=== PATIENT | female | born 1950 | race African-American/Black ===

== ENCOUNTER 2017-02-07 14:46 | Emergency (ER) | payer MEDICAID, OTHER ==
[~2017-02-07] VITALS: Ht 154.9 cm; Wt 80.0 kg
[~2017-02-07 14:46] MED LIST: ASPI81TA82 PO; CITA20TA4 PO; HYDR12.56 PO; LOSA25TA31 PO; METO25 PO; NIFE20CA PO; ZOCO40TA PO
[2017-02-07 15:03] VITALS: BP 184/93; PULSE 60; RESP 18; TEMP 98.3; O2SAT 97
[2017-02-07] MEDS ORDERED: SODIUM CHLORIDE 0.9% FLUSH 10 ML FLUSH IVF PRN (15:15)
[2017-02-07] MEDS ORDERED: NITROGLYCERIN 0.4 MG SL 25 TABS/BTL SL ONE (15:15)
[2017-02-07] MEDS ORDERED: HYDROmorphone HCL PF 1 MG/ML VIAL IV PUSH ONE (15:15)
[2017-02-07] MEDS ORDERED: SODIUM CHLORID 0.9% 500 ML INJ 500 ML IV ONE (15:15)
--- NOTE | 2017-02-07 15:21 | PD ---
HPI Chief Complaint: Chest Pain Time Seen by Provider: 14:58 Travel History International Travel<30 days: No Contact w/Intl Traveler<30days: No Traveled to known affect area: No History of Present Illness HPI The patient is a 66-year-old [place] female who presents to the emergency department for right sided neck pain. The patient states she developed right sided neck pain last night that radiates up the posterior aspect of the right neck, around to the right jaw, and then down to the anterior aspect of the right neck. The pain is worse with flexion, extension, and rotation of the neck. The patient denies any known trauma to the cervical area. The patient states the pain then developed around the anterior aspect the left chest, radiating from the neck, and EMS brought her to the emergency department for chest pain. The patient does have a history of CAD with [place] [facility] in 2008. 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 The patient denies any shortness of breath , nausea, vomiting, or abdominal pain. The patient denies any focal deficits. PFSH Past Medical History Cardiac Catheterization: Yes (2008) Cardiovascular Problems: Yes High Cholesterol: Yes Diminished Hearing: No Hypertension: Yes ?: Not Menopausal: Yes : 2 Para: 1 : 1 Past Surgical History Section: Yes Coronary Stent: Yes (2008) Social History Alcohol Use: No Tobacco Use: No Allergies-Medications (Allergen,Severity, Reaction): Coded Allergies: Morphine (Verified Adverse Reaction, Severe, VOMITING, 08/23/16) Reported Meds & Prescriptions Reported Meds & Active Scripts Active Citalopram Hydrobromide 20 Mg Tab 20 Mg PO DAILY Cozaar (Losartan Potassium) 25 Mg Tab 25 Mg PO DAILY Reported Nifedipine 20 Mg Cap 40 Mg PO DAILY Zocor 40 mg (Simvastatin) 40 Mg Tab Unknown Dose PO HS Hydrochlorothiazide 12.5 Mg Tab Tab PO Aspir-81 (Aspirin) 81 Mg Tab 81 Mg PO DAILY Metoprolol Tartrate 25 mg (Metoprolol Tartrate) 25 Mg Tab 25 Mg PO DAILY Review of Systems Except as stated in HPI: all other systems reviewed are Neg General / Constitutional: No: Fever HENT: Positive: Neck Pain, No: Headaches, Lightheadedness Cardiovascular: Positive: Chest Pain or Discomfort Respiratory: No: Shortness of Breath Gastrointestinal: No: Nausea, Vomiting, Abdominal Pain Musculoskeletal: No: Weakness Neurologic: No: Dizziness, Focal Abnormalities, Paresthesia, Sensory Disturbance Physical Exam Narrative GENERAL: Awake, alert, 66-year-old female who appears her stated age and is in no acute respiratory distress. SKIN: Focused skin assessment warm/dry. HEAD: Atraumatic. Normocephalic. EYES: Pupils equal and round. Pupils are 3 mm bilateral and reactive. ENT: No nasal bleeding or discharge. Mucous membranes pink and moist. NECK: Trachea midline. No JVD. Tenderness over the right paravertebral muscle, limited ability to rotate to left and right secondary to pain. CARDIOVASCULAR: Regular rate and rhythm. No murmur appreciated. RESPIRATORY: No accessory muscle use. Clear to auscultation. Breath sounds equal bilaterally. GASTROINTESTINAL: Abdomen soft, non-tender, nondistended. No rebound tenderness. MUSCULOSKELETAL: No obvious deformities. No clubbing. No cyanosis. No edema. NEUROLOGICAL: Awake and alert. No obvious cranial nerve deficits. Motor grossly within normal limits. Normal speech. Nonfocal. PSYCHIATRIC: Appropriate mood and affect; insight and judgment normal. Data Data Last Documented VS Vital Signs Date Time Temp Pulse Resp B/P Pulse Ox O2 Delivery O2 Flow Rate FiO2 02/07/17 15:34 65 18 153/95 98 Room Air 02/07/17 15:03 98.3 Orders Electrocardiogram (02/07/17 ) Ckmb (Isoenzyme) Profile (02/07/17 15:12) Complete Blood Count With Diff (02/07/17 15:12) Comprehensive Metabolic Panel (02/07/17 15:12) Magnesium (Mg) (02/07/17 15:12) Prothrombin Time / Inr (Pt) (02/07/17 15:12) Act Partial Throm Time (Ptt) (02/07/17 15:12) Troponin I (02/07/17 15:12) Chest, Single Ap (02/07/17 15:12) Ecg Monitoring (02/07/17 15:12) Bilateral Bp Monitoring (02/07/17 15:12) Iv Access Insert/Monitor (02/07/17 15:12) Oximetry (02/07/17 15:12) Oxygen Administration (02/07/17 15:12) Sodium Chloride 0.9% Flush (Ns Flush) (02/07/17 15:15) Nitroglycerin Sl (Nitrostat Sl) (02/07/17 15:15) Sodium Chlorid 0.9% 500 Ml Inj (Ns 500 M (02/07/17 15:15) Cta Neck W Iv Contrast W 3d (02/07/17 ) Hydromorphone Pf Inj (Dilaudid Pf Inj) (02/07/17 15:15) CKMB (02/07/17 15:20) CKMB% (02/07/17 15:20) Ondansetron Inj (Zofran Inj) (02/07/17 16:30) Iohexol 350 Inj (Omnipaque 350 Inj) (02/07/17 16:51) Ketorolac Inj (Toradol Inj) (02/07/17 17:30) Orphenadrine Inj (Norflex Inj) (02/07/17 17:30) Apply Cervical Collar (02/07/17 17:28) Morphine Inj (Morphine Inj) (02/07/17 17:30) Labs Laboratory Tests Test 02/07/17 15:20 White Blood Count 10.1 TH/MM3 Red Blood Count 5.35 MIL/MM3 Hemoglobin 12.0 GM/DL Hematocrit 36.9 % Mean Corpuscular Volume 68.9 FL Mean Corpuscular Hemoglobin 22.4 PG Mean Corpuscular Hemoglobin 32.5 % Concent Red Cell Distribution Width 14.4 % Platelet Count 334 TH/MM3 Mean Platelet Volume 8.6 FL Neutrophils (%) (Auto) 67.2 % Lymphocytes (%) (Auto) 23.0 % Monocytes (%) (Auto) 7.8 % Eosinophils (%) (Auto) 1.1 % Basophils (%) (Auto) 0.9 % Neutrophils # (Auto) 6.8 TH/MM3 Lymphocytes # (Auto) 2.3 TH/MM3 Monocytes # (Auto) 0.8 TH/MM3 Eosinophils # (Auto) 0.1 TH/MM3 Basophils # (Auto) 0.1 TH/MM3 CBC Comment AUTO DIFF Differential Comment AUTO DIFF CONFIRMED Platelet Estimate NORMAL Platelet Morphology Comment NORMAL Ovalocytes 1+ Prothrombin Time 11.1 SEC Prothromb Time International 1.0 RATIO Ratio Activated Partial 26.4 SEC Thromboplast Time Sodium Level 139 MEQ/L Potassium Level 3.6 MEQ/L Chloride Level 102 MEQ/L Carbon Dioxide Level 30.3 MEQ/L Anion Gap 7 MEQ/L Blood Urea Nitrogen 12 MG/DL Creatinine 1.02 MG/DL Estimat Glomerular Filtration 65 ML/MIN Rate Random Glucose 103 MG/DL Calcium Level 9.1 MG/DL Magnesium Level 1.7 MG/DL Total Bilirubin 0.5 MG/DL Aspartate Amino Transf 25 U/L (AST/SGOT) Alanine Aminotransferase 22 U/L (ALT/SGPT) Alkaline Phosphatase 52 U/L Total Creatine Kinase 170 U/L Creatine Kinase MB 1.0 NG/ML Troponin I LESS THAN 0.02 NG/ML Total Protein 7.8 GM/DL Albumin 3.7 GM/DL MDM Medical Decision Making Medical Screen Exam Complete: Yes Emergency Medical Condition: Yes Medical Record Reviewed: Yes Interpretation(s) EKG reveals normal sinus rhythm with a rate of 60. No ischemic changes or ectopy noted. Laboratory Tests Test 02/07/17 15:20 White Blood Count 10.1 TH/MM3 Red Blood Count 5.35 MIL/MM3 Hemoglobin 12.0 GM/DL Hematocrit 36.9 % Mean Corpuscular Volume 68.9 FL Mean Corpuscular Hemoglobin 22.4 PG Mean Corpuscular Hemoglobin 32.5 % Concent Red Cell Distribution Width 14.4 % Platelet Count 334 TH/MM3 Mean Platelet Volume 8.6 FL Neutrophils (%) (Auto) 67.2 % Lymphocytes (%) (Auto) 23.0 % Monocytes (%) (Auto) 7.8 % Eosinophils (%) (Auto) 1.1 % Basophils (%) (Auto) 0.9 % Neutrophils # (Auto) 6.8 TH/MM3 Lymphocytes # (Auto) 2.3 TH/MM3 Monocytes # (Auto) 0.8 TH/MM3 Eosinophils # (Auto) 0.1 TH/MM3 Basophils # (Auto) 0.1 TH/MM3 CBC Comment AUTO DIFF Differential Comment AUTO DIFF CONFIRMED Platelet Estimate NORMAL Platelet Morphology Comment NORMAL Ovalocytes 1+ Prothrombin Time 11.1 SEC Prothromb Time International 1.0 RATIO Ratio Activated Partial 26.4 SEC Thromboplast Time Sodium Level 139 MEQ/L Potassium Level 3.6 MEQ/L Chloride Level 102 MEQ/L Carbon Dioxide Level 30.3 MEQ/L Anion Gap 7 MEQ/L Blood Urea Nitrogen 12 MG/DL Creatinine 1.02 MG/DL Estimat Glomerular Filtration 65 ML/MIN Rate Random Glucose 103 MG/DL Calcium Level 9.1 MG/DL Magnesium Level 1.7 MG/DL Total Bilirubin 0.5 MG/DL Aspartate Amino Transf 25 U/L (AST/SGOT) Alanine Aminotransferase 22 U/L (ALT/SGPT) Alkaline Phosphatase 52 U/L Total Creatine Kinase 170 U/L Creatine Kinase MB 1.0 NG/ML Troponin I LESS THAN 0.02 NG/ML Total Protein 7.8 GM/DL Albumin 3.7 GM/DL CTA reveals tortuous bilateral internal carotid arteries with focal kinking identified bilaterally without evidence for hemodynamically significant stenosis. Mild atherosclerotic plaquing at the bifurcations. Differential Diagnosis Differential diagnosis includes carotid dissection, cervical strain, torticollis , aortic dissection, acute coronary syndrome. Narrative Course IV was established, labs were drawn and sent, and the patient was placed on cardiac telemetry monitoring and continuous pulse oximetry monitoring. CTA was ordered to rule out carotid dissection. The patient was administered Dilaudid, Zofran, and IV fluids. Laboratory evaluation was unremarkable, troponin was negative. CT of the carotids reveals tortuous bilateral internal carotid arteries with focal kinking identified bilaterally without evidence for hemodynamically significant stenosis. Mild atherosclerotic plaquing at the bifurcations, no evidence of dissection. The patient still has mild right sided neck pain, is worse when she turns her head left, with extension and flexion. Patient is afebrile, neck pain is unilateral, I do not suspect meningitis. Patient appears to have soft tissue injury as there is no evidence of dissection. The patient was administered Toradol, morphine, and Norflex. The patient will be discharged home on Motrin and Norflex, is advised to wear soft collar as needed and follow-up with her primary physician. Return if symptoms worsen or progress. I also evaluated the right EAC and right TM, translucent with no evidence of infection or erythema. Diagnosis Primary Impression: Neck pain on right side Patient Instructions: General Instructions Additional Instructions: Medications as they directed. Warm compresses. Soft collar as needed. Return if symptoms worsen or progress. Follow-up with your primary physician. Med/Other Pt SpecificInfo: Prescription(s) given Scripts Orphenadrine ER 12 HR (Orphenadrine CR)100 Mg [id number] Mg PO Q12HR #20 TAB Ref 0 Prov:Thomas Zayas MD 02/07/17 Ibuprofen 400 Mg [id number] Mg PO Q6H PRN (PAIN SCALE 1 TO 10) #20 TAB Ref 0 Prov:Thomas Zayas MD 02/07/17 Disposition: 01 DISCHARGE HOME Condition: Stable Thomas Zayas MD Feb 07, 2017 15:21
[2017-02-07 15:23] VITALS: BP_SYST 152; BP_SYST 153; BP_DIAS 89; BP_DIAS 95; PULSE 63; RESP 18; O2SAT 98
[2017-02-07 15:34] VITALS: BP 153/95; PULSE 65; RESP 18; O2SAT 98
[2017-02-07 15:40] LABS: AUTOMATED NEUTROPHIL # 6.8 TH/MM3 (1.8-7.7); BASOPHIL # 0.1 TH/MM3 (0-0.2); BASOPHIL % 0.9 % (0.0-2.0); EOSINOPHIL # 0.1 TH/MM3 (0-0.4); EOSINOPHIL % 1.1 % (0.0-4.0); HEMATOCRIT 36.9 % (35.0-46.0); HEMO FLAGS AUTO DIFF; LYMPHOCYTE # 2.3 TH/MM3 (1.0-4.8); MEAN CELL VOLUME 68.9 FL (80.0-100.0); MEAN CORPUSCULAR HEMOGLOBIN 22.4 PG (27.0-34.0); MEAN CORPUSCULAR HGB CONC 32.5 % (32.0-36.0); MONO % 7.8 % (0.0-8.0); NEUT % 67.2 % (16.0-70.0); PLATELET COUNT 334 TH/MM3 (150-450); RED BLOOD COUNT 5.35 MIL/MM3 (4.00-5.30); RED CELL DISTRIBUTION WIDTH 14.4 % (11.6-17.2); WHITE BLOOD COUNT 10.1 TH/MM3 (4.0-11.0)
[2017-02-07 15:52] LABS: APTT (PATIENT) 26.4 SEC (24.3-30.1); PROTHROMBIN TIME - PATIENT 11.1 SEC (9.8-11.6)
[2017-02-07 16:04] LABS: ALT (GPT) 22 U/L (10-53); ANION GAP 7 MEQ/L (5-15); AST (GOT) 25 U/L (15-37); BICARBONATE 30.3 MEQ/L (21.0-32.0); BLOOD UREA NITROGEN 12 MG/DL (7-18); CHLORIDE 102 MEQ/L (98-107); GLOMERULAR FILTRATION RATE 65 ML/MIN (>89); MAGNESIUM 1.7 MG/DL (1.5-2.5); SODIUM (NA) 139 MEQ/L (136-145)
[2017-02-07 16:08] LABS: OVALOCYTES 1+ (NORMAL); PLATELET ESTIMATE SMEAR NORMAL (NORMAL); PLATELET MORPHOLOGY NORMAL (NORMAL); SCAN/DIFF AUTO DIFF CONFIRMED
[2017-02-07 16:13] LABS: ALKALINE PHOSPHATASE 52 U/L (45-117); CREATINE KINASE 170 U/L (26-192); POTASSIUM 3.6 MEQ/L (3.5-5.1); TOTAL BILIRUBIN ADULT 0.5 MG/DL (0.2-1.0)
--- NOTE | 2017-02-07 16:15 | RADRPT ---
EXAM DATE/TIME: 02/07/2017 15:44 [facility] COMPARISON: CHEST SINGLE AP, August 23, 2016, 17:42. INDICATIONS : Chest discomfort from anxiety. General weakness. MEDICAL HISTORY : Hypertension. Myocardial infarction. SURGICAL HISTORY : Coronary artery stent. ENCOUNTER: Initial ACUITY: 1 day PAIN SCORE: 1/10 LOCATION: Bilateral chest FINDINGS: Portable AP view of the chest demonstrates a normal-sized cardiac silhouette. No effusion, consolidat ion, or pneumothorax is visualized. The bones and soft tissues demonstrate no acute abnormality. Ther e is a calcified lymph node overlying the left mediastinal region. CONCLUSION: Stable chest x-ray. No acute cardiopulmonary abnormality is identified. Black Chappell MD on February 07, 2017 at 16:12 Board Certified Radiologist. This report was verified electronically.
[2017-02-07] MEDS ORDERED: ONDANSETRON HCL 4 MG/2 ML VIAL IV PUSH ONE (16:30)
[2017-02-07] MEDS ORDERED: IOHEXOL 350 MG/ML 10 ML VIAL (for RAD DIAG) IV ONE (16:51)
--- NOTE | 2017-02-07 17:19 | RADRPT ---
EXAM DATE/TIME: 02/07/2017 16:47 [facility] COMPARISON: No previous studies available for comparison. INDICATIONS : Right sided neck pain starting today. IV CONTRAST: 74 cc Omnipaque 350 (iohexol) IV RADIATION DOSE: 27.86 CTDIvol (mGy) MEDICAL HISTORY : Cardiovascular disease. Hypertension. SURGICAL HISTORY : None. ENCOUNTER: Initial ACUITY: 1 day PAIN SCALE: 5/10 LOCATION: Right neck Elevated flow velocities and ICA/CCA ratios have been found to correlate with increased degrees of vessel stenosis, calculated as percentage of diameter relative to a normal segment of distal ICA/CCA. TECHNIQUE: Volumetric scanning was performed using a multirow detector CT scanner. The data was post processed with a variety of visualization algorithms including full-volume maximum intensity projection, multip lanar sliding thin-slab reformation, curved-planar reformation, and surface-rendering techniques. Us ing automated exposure control and adjustment of the mA and/or kV according to patient size, radiatio n dose was kept as low as reasonably achievable to obtain optimal diagnostic quality images. FINDINGS: AORTIC ARCH: There is a 2-vessel origin of the great vessels from the aorta. No evidence of ostial narrowing. RIGHT CAROTID: The common carotid artery is intact. The carotid bulb has a normal configuration without ulceration o r narrowing. The internal carotid artery markedly tortuous. The external carotid artery is intact. LEFT CAROTID: The common carotid artery is intact. The carotid bulb has a normal configuration without ulceration or narrowing. Internal carotid artery is markedly tortuous. The external carotid artery is intact. VERTEBRALS: The vertebral arteries have a symmetric diameter. No stenotic lesions are seen. CONCLUSION: 1. Tortuous bilateral internal carotid arteries with focal kinking identified bilaterally without theron dence for hemodynamically significant stenosis. 2. Mild atherosclerotic plaquing at the bifurcations. Keith Gustafson MD on February 07, 2017 at 17:16 Board Certified Radiologist. This report was verified electronically.
[2017-02-07] MEDS ORDERED: ORPHENADRINE INJ 60 MG/2 ML AMP IM ONE (17:30)
[2017-02-07] MEDS ORDERED: MORPHINE SULFATE 4 MG/ML INJ IV PUSH ONE (17:30)
[2017-02-07] MEDS ORDERED: KETOROLAC TROMETHAMINE 30 MG/ML (IVP) VIAL IV PUSH ONE (17:30)
[2017-02-07] MEDS ORDERED: ORPH100T99 PO (17:33)
[2017-02-07] MEDS ORDERED: IBUP400T20 PO (17:33)
--- NOTE | 2017-02-08 11:13 | EKG ---
Date Performed: 02/07/2017 Time Performed: 15:11:31 PTAGE: 66 years EKG: Sinus rhythm NORMAL ECG NO PREVIOUS TRACING DOCTOR: Regino Escalona Interpretating Date/Time 02/08/2017 11:12:33
== END 2017-02-07 19:00 | disposition home or self-care (01) ==
LOC: NEPE 14:46
DX: M54.2 Cervicalgia (principal); R07.89 Other chest pain; I10 Essential (primary) hypertension; E78.00 Pure hypercholesterolemia, unspecified; Z86.79 Personal history of other diseases of the circulatory system; Z79.899 Other long term (current) drug therapy
CPT/HCPCS: 70498; 71010; 80053; 82550; 82552; 83735; 84484; 85025; 85610; 85730; 93005; 96372; 96374; 96375; 99285; J1170; J1885; J2270; J2360; J2405; J7040; L0120; Q9967

== ENCOUNTER 2017-04-13 13:21 | Emergency (ER) | payer OTHER ==
[~2017-04-13] VITALS: Ht 154.9 cm; Wt 84.0 kg
[~2017-04-13 13:21] MED LIST changes: +IBUP400T20 PO; +ORPH100T99 PO
[2017-04-13 13:37] VITALS: BP 161/71; PULSE 54; RESP 18; TEMP 98.3; O2SAT 97
[2017-04-13] MEDS ORDERED: SODIUM CHLOR 0.9% 1000 ML INJ 1,000 ML IV SCH (13:40)
[2017-04-13 13:44] VITALS: BP 141/67; PULSE 48; PULSE 50; RESP 16; TEMP 98.3; O2SAT 97
[2017-04-13] MEDS ORDERED: SODIUM CHLORIDE 0.9% FLUSH 5 ML FLUSH IV FLUSH PRN (13:45)
--- NOTE | 2017-04-13 13:51 | PD ---
HPI Chief Complaint: Altered Mental Status Time Seen by Provider: 13:41 Travel History International Travel<30 days: No Contact w/Intl Traveler<30days: No History of Present Illness HPI 66-year-old female with PMH of CAD status post stenting, HTN, HLD presents to the ED by EMS for evaluation of pain behind the ears, blurred vision and somnolence. Onset this morning while the patient was in class, just before arrival. Patient endorses blurred vision, now resolved. She denies fever, chills, headaches, chest pain, shortness of breath, nausea, vomiting, changes in bowel habits, dysuria, weakness. She endorses sleeping well over the last week. PFSH Past Medical History Cardiac Catheterization: Yes (2008) Cardiovascular Problems: Yes High Cholesterol: Yes Diminished Hearing: No Hypertension: Yes Menopausal: Yes : 2 Para: 1 : 1 Past Surgical History Section: Yes Coronary Stent: Yes (2008) Social History Alcohol Use: No Tobacco Use: No Allergies-Medications (Allergen,Severity, Reaction): Coded Allergies: Morphine (Verified Adverse Reaction, Severe, VOMITING, 08/23/16) Reported Meds & Prescriptions Reported Meds & Active Scripts Active Orphenadrine CR (Orphenadrine Citrate) 100 Mg Tab 100 Mg PO Q12HR Ibuprofen 400 Mg Tab 400 Mg PO Q6H PRN Review of Systems Except as stated in HPI: all other systems reviewed are Neg Physical Exam Narrative GENERAL: Well-nourished, well-developed female in no acute distress. SKIN: Focused skin assessment warm/dry. HEAD: Normocephalic. EYES: No scleral icterus. No injection or drainage. PERRLA. EOMI. NECK: Supple, trachea midline. No JVD or lymphadenopathy. CARDIOVASCULAR: Regular rate and rhythm without murmurs, gallops, or rubs. RESPIRATORY: Breath sounds equal bilaterally. No accessory muscle use. GASTROINTESTINAL: Abdomen soft, non-tender, nondistended. MUSCULOSKELETAL: No cyanosis, or edema. NEUROLOGICAL: Awake and alert. Cranial nerves II through XII intact. Motor and sensory grossly within normal limits. 5/5 muscle strength in all muscle groups. Normal speech. No pronator drift. BACK: Nontender without obvious deformity. No CVA tenderness. Data Data Last Documented VS Vital Signs Date Time Temp Pulse Resp B/P Pulse Ox O2 Delivery O2 Flow Rate FiO2 04/13/17 16:29 50 18 149/85 97 04/13/17 13:44 98.3 Room Air Orders Electrocardiogram (04/13/17 13:40) Ammonia (04/13/17 13:40) Complete Blood Count With Diff (04/13/17 13:40) Comprehensive Metabolic Panel (04/13/17 13:40) Creatine Kinase (Cpk) (04/13/17 13:40) Prothrombin Time / Inr (Pt) (04/13/17 13:40) Act Partial Throm Time (Ptt) (04/13/17 13:40) Troponin I (04/13/17 13:40) Thyroid Stimulating Hormone (04/13/17 13:40) Urinalysis - C+S If Indicated (04/13/17 13:40) Chest, Single Ap (04/13/17 13:40) Ct Brain W/O Iv Contrast(Rout) (04/13/17 13:40) Blood Glucose (04/13/17 13:40) Ecg Monitoring (04/13/17 13:40) Iv Access Insert/Monitor (04/13/17 13:40) Oximetry (04/13/17 13:40) Sodium Chloride 0.9% Flush (Ns Flush) (04/13/17 13:45) Sodium Chlor 0.9% 1000 Ml Inj (Ns 1000 M (04/13/17 13:40) Labs Laboratory Tests Test 04/13/17 04/13/17 14:00 14:30 White Blood Count 8.0 TH/MM3 Red Blood Count 5.11 MIL/MM3 Hemoglobin 11.1 GM/DL Hematocrit 36.1 % Mean Corpuscular Volume 70.6 FL Mean Corpuscular Hemoglobin 21.7 PG Mean Corpuscular Hemoglobin 30.8 % Concent Red Cell Distribution Width 15.6 % Platelet Count 321 TH/MM3 Mean Platelet Volume 8.0 FL Neutrophils (%) (Auto) 50.4 % Lymphocytes (%) (Auto) 35.3 % Monocytes (%) (Auto) 11.0 % Eosinophils (%) (Auto) 2.1 % Basophils (%) (Auto) 1.2 % Neutrophils # (Auto) 4.0 TH/MM3 Lymphocytes # (Auto) 2.8 TH/MM3 Monocytes # (Auto) 0.9 TH/MM3 Eosinophils # (Auto) 0.2 TH/MM3 Basophils # (Auto) 0.1 TH/MM3 CBC Comment DIFF FINAL Differential Comment Prothrombin Time 11.3 SEC Prothromb Time International 1.0 RATIO Ratio Activated Partial 26.9 SEC Thromboplast Time Sodium Level 138 MEQ/L Potassium Level 3.1 MEQ/L Chloride Level 99 MEQ/L Carbon Dioxide Level 29.3 MEQ/L Anion Gap 10 MEQ/L Blood Urea Nitrogen 11 MG/DL Creatinine 0.94 MG/DL Estimat Glomerular Filtration 72 ML/MIN Rate Random Glucose 113 MG/DL Calcium Level 8.4 MG/DL Total Bilirubin 0.5 MG/DL Aspartate Amino Transf 19 U/L (AST/SGOT) Alanine Aminotransferase 24 U/L (ALT/SGPT) Alkaline Phosphatase 54 U/L Ammonia 35 MCMOL/L Total Creatine Kinase 103 U/L Troponin I LESS THAN 0.02 NG/ML Total Protein 7.3 GM/DL Albumin 3.4 GM/DL Thyroid Stimulating Hormone 1.550 uIU/ML 3rd Gen Urine Color LIGHT-YELLOW Urine Turbidity CLEAR Urine pH 6.5 Urine Specific [place] 1.007 Urine Protein NEG mg/dL Urine Glucose (UA) NEG mg/dL Urine Ketones NEG mg/dL Urine Occult Blood NEG Urine Nitrite NEG Urine Bilirubin NEG Urine Urobilinogen LESS THAN 2.0 MG/DL Urine Leukocyte Esterase NEG Urine WBC LESS THAN 1 /hpf Urine Squamous Epithelial 2 /hpf Cells Urine Bacteria NONE /hpf Microscopic Urinalysis Comment CATH-CULT NOT IND MDM Medical Decision Making Medical Screen Exam Complete: Yes Emergency Medical Condition: Yes Differential Diagnosis fatigue versus electrolyte abnormality versus less likely ICH versus other Narrative Course 66-year-old female with PMH of CAD status post stenting, HTN, HLD presents to the ED by EMS for evaluation of pain behind the ears, blurred vision and somnolence. Onset this morning while the patient was in class, just before arrival. Patient endorses blurred vision, now resolved. She denies fever, chills, headaches, chest pain, shortness of breath, nausea, vomiting, changes in bowel habits, dysuria, weakness. She endorses sleeping well over the last week. Vitals reviewed. Physical exam reveals no focal neuro deficit. Patient is nontoxic appearing, chest CTAB, abdomen soft, nontender. No CVA tenderness. EKG: Rate 51, sinus rhythm. CA interval 183, QRS 86, QTC 424. Normal axis. No ischemic changes. Reviewed by Dr. Reinoso. CXR: no evidence of acute airspace disease or significant congestion. CBC: WBC 8.0, Hgb 11.1 Coags: INR 1.0 CMP: Cr 0.94, K3.1 Ammonia: 35 Recheck the patient is sleeping, easily rouses to voice. Discussed the results of the workup with the patient. It's possible that her BP medications could be adjusted. Patient is also taking orphenadrine which could be contributing to today's complaint. She is instructed to follow up with the PCP this week. She indicated understanding of the discharge instructions and is agreeable to the care plan. She is stable and discharged home. Diagnosis Primary Impression: Somnolence, daytime Referrals: Veronika Burnette MD Primary Care Physician Patient Instructions: General Instructions Additional Instructions: Rest, hydrate. Return to normal, gentle activity as tolerated. Follow-up with primary care provider tomorrow. Call Dr. Burnette tomorrow to determine your eligibility for care. Return to the ED for any urgent or emergent medical condition. Disposition: 01 DISCHARGE HOME Condition: Stable Inna Conde Apr 13, 2017 13:51
[2017-04-13 14:20] LABS: BASOPHIL # 0.1 TH/MM3 (0-0.2); BASOPHIL % 1.2 % (0.0-2.0); EOSINOPHIL # 0.2 TH/MM3 (0-0.4); EOSINOPHIL % 2.1 % (0.0-4.0); HEMATOCRIT 36.1 % (35.0-46.0); HEMO FLAGS DIFF FINAL; LYMPH % 35.3 % (9.0-44.0); LYMPHOCYTE # 2.8 TH/MM3 (1.0-4.8); MEAN CELL VOLUME 70.6 FL (80.0-100.0); MEAN CORPUSCULAR HEMOGLOBIN 21.7 PG (27.0-34.0); MEAN CORPUSCULAR HGB CONC 30.8 % (32.0-36.0); NEUT % 50.4 % (16.0-70.0); PLATELET COUNT 321 TH/MM3 (150-450); RED BLOOD COUNT 5.11 MIL/MM3 (4.00-5.30); RED CELL DISTRIBUTION WIDTH 15.6 % (11.6-17.2)
[2017-04-13 14:22] LABS: APTT (PATIENT) 26.9 SEC (24.3-30.1); PROTHROMBIN TIME - PATIENT 11.3 SEC (9.8-11.6)
[2017-04-13 14:32] LABS: ALT (GPT) 24 U/L (10-53); ANION GAP 10 MEQ/L (5-15); AST (GOT) 19 U/L (15-37); BICARBONATE 29.3 MEQ/L (21.0-32.0); BLOOD UREA NITROGEN 11 MG/DL (7-18); CHLORIDE 99 MEQ/L (98-107); GLOMERULAR FILTRATION RATE 72 ML/MIN (>89); POTASSIUM 3.1 MEQ/L (3.5-5.1); SODIUM (NA) 138 MEQ/L (136-145)
--- NOTE | 2017-04-13 14:33 | RADRPT ---
EXAM DATE/TIME: 04/13/2017 14:15 [facility] COMPARISON: CHEST SINGLE AP, February 07, 2017, 15:44. INDICATIONS : Syncope. MEDICAL HISTORY : Hypertension. Myocardial infarction. SURGICAL HISTORY : Coronary artery stent. ENCOUNTER: Initial ACUITY: 1 day PAIN SCORE: 0/10 LOCATION: Bilateral chest FINDINGS: Lungs are hypoaerated but clear. Heart and mediastinal structures are stable. Heart is at the upper limits of normal in size. Osseous structures are intact. CONCLUSION: Hypoaerated lungs. No evidence of acute air space disease or significant congestion. Roderick Nair MD on April 13, 2017 at 14:30 Board Certified Radiologist. This report was verified electronically.
[2017-04-13 14:42] LABS: ALKALINE PHOSPHATASE 54 U/L (45-117); CREATINE KINASE 103 U/L (26-192); TOTAL BILIRUBIN ADULT 0.5 MG/DL (0.2-1.0)
[2017-04-13 14:55] LABS: BLOOD, URINE NEG (NEG); GLUCOSE,URINE NEG (NEG); KETONE, URINE NEG (NEG); NITRITE,URINE NEG (NEG); PH, URINE 6.5 (5.0-8.5); SQUAMOUS EPITHELIAL CELL URINE 2 /hpf (0-5); URINE COLOR LIGHT-YELLOW (YELLW/STRAW)
[2017-04-13 15:02] LABS: COMMENT (UR) CATH-CULT NOT IND; CULTURE IF INDICATED CATH CULTURE NOT IND
--- NOTE | 2017-04-13 15:06 | RADRPT ---
EXAM DATE/TIME: 04/13/2017 14:53 [facility] COMPARISON: CTA CAROTID ARTERIES W 3D RECON, February 07, 2017, 16:47. INDICATIONS : Fatigue, syncopy and unsteady gait. RADIATION DOSE: 40.58 CTDIvol (mGy) MEDICAL HISTORY : Cardiovascular disease. Hypertension. SURGICAL HISTORY : Coronary artery stent. Hysterectomy. ENCOUNTER: Initial ACUITY: 1 day PAIN SCALE: 1/10 LOCATION: Bilateral cranial posterior burning feeling TECHNIQUE: Multiple contiguous axial images were obtained of the head. Using automated exposure control and adj ustment of the mA and/or kV according to patient size, radiation dose was kept as low as reasonably a chievable to obtain optimal diagnostic quality images. FINDINGS: CEREBRUM: The ventricles are normal for age. No evidence of midline shift, mass lesion, hemorrhage or acute in farction. No extra-axial fluid collections are seen. POSTERIOR FOSSA: The cerebellum and brainstem are intact. The 4th ventricle is midline. The cerebellopontine angle i s unremarkable. EXTRACRANIAL: The visualized portion of the orbits is intact. SKULL: The calvaria is intact. No evidence of skull fracture. CONCLUSION: 1. No acute intracranial abnormality. Martin Hewitt MD on April 13, 2017 at 15:02 Board Certified Radiologist. This report was verified electronically.
--- NOTE | 2017-04-13 15:24 | PD ---
Data Data Last Documented VS Vital Signs Date Time Temp Pulse Resp B/P Pulse Ox O2 Delivery O2 Flow Rate FiO2 04/13/17 16:29 50 18 149/85 97 04/13/17 13:44 98.3 Room Air Orders Electrocardiogram (04/13/17 13:40) Ammonia (04/13/17 13:40) Complete Blood Count With Diff (04/13/17 13:40) Comprehensive Metabolic Panel (04/13/17 13:40) Creatine Kinase (Cpk) (04/13/17 13:40) Prothrombin Time / Inr (Pt) (04/13/17 13:40) Act Partial Throm Time (Ptt) (04/13/17 13:40) Troponin I (04/13/17 13:40) Thyroid Stimulating Hormone (04/13/17 13:40) Urinalysis - C+S If Indicated (04/13/17 13:40) Chest, Single Ap (04/13/17 13:40) Ct Brain W/O Iv Contrast(Rout) (04/13/17 13:40) Blood Glucose (04/13/17 13:40) Ecg Monitoring (04/13/17 13:40) Iv Access Insert/Monitor (04/13/17 13:40) Oximetry (04/13/17 13:40) Sodium Chloride 0.9% Flush (Ns Flush) (04/13/17 13:45) Sodium Chlor 0.9% 1000 Ml Inj (Ns 1000 M (04/13/17 13:40) Labs Laboratory Tests Test 04/13/17 04/13/17 14:00 14:30 White Blood Count 8.0 TH/MM3 Red Blood Count 5.11 MIL/MM3 Hemoglobin 11.1 GM/DL Hematocrit 36.1 % Mean Corpuscular Volume 70.6 FL Mean Corpuscular Hemoglobin 21.7 PG Mean Corpuscular Hemoglobin 30.8 % Concent Red Cell Distribution Width 15.6 % Platelet Count 321 TH/MM3 Mean Platelet Volume 8.0 FL Neutrophils (%) (Auto) 50.4 % Lymphocytes (%) (Auto) 35.3 % Monocytes (%) (Auto) 11.0 % Eosinophils (%) (Auto) 2.1 % Basophils (%) (Auto) 1.2 % Neutrophils # (Auto) 4.0 TH/MM3 Lymphocytes # (Auto) 2.8 TH/MM3 Monocytes # (Auto) 0.9 TH/MM3 Eosinophils # (Auto) 0.2 TH/MM3 Basophils # (Auto) 0.1 TH/MM3 CBC Comment DIFF FINAL Differential Comment Prothrombin Time 11.3 SEC Prothromb Time International 1.0 RATIO Ratio Activated Partial 26.9 SEC Thromboplast Time Sodium Level 138 MEQ/L Potassium Level 3.1 MEQ/L Chloride Level 99 MEQ/L Carbon Dioxide Level 29.3 MEQ/L Anion Gap 10 MEQ/L Blood Urea Nitrogen 11 MG/DL Creatinine 0.94 MG/DL Estimat Glomerular Filtration 72 ML/MIN Rate Random Glucose 113 MG/DL Calcium Level 8.4 MG/DL Total Bilirubin 0.5 MG/DL Aspartate Amino Transf 19 U/L (AST/SGOT) Alanine Aminotransferase 24 U/L (ALT/SGPT) Alkaline Phosphatase 54 U/L Ammonia 35 MCMOL/L Total Creatine Kinase 103 U/L Troponin I LESS THAN 0.02 NG/ML Total Protein 7.3 GM/DL Albumin 3.4 GM/DL Thyroid Stimulating Hormone 1.550 uIU/ML 3rd Gen Urine Color LIGHT-YELLOW Urine Turbidity CLEAR Urine pH 6.5 Urine Specific [place] 1.007 Urine Protein NEG mg/dL Urine Glucose (UA) NEG mg/dL Urine Ketones NEG mg/dL Urine Occult Blood NEG Urine Nitrite NEG Urine Bilirubin NEG Urine Urobilinogen LESS THAN 2.0 MG/DL Urine Leukocyte Esterase NEG Urine WBC LESS THAN 1 /hpf Urine Squamous Epithelial 2 /hpf Cells Urine Bacteria NONE /hpf Microscopic Urinalysis Comment CATH-CULT NOT IND MDM Supervised Visit with DAISY: Yes Narrative Course I, Dr. Reinoso, have reviewed the advance practice practitioner's documentation and am in agreement, met with the patient face to face, made the diagnosis, and the medical decision making was done by me. *My assessment and Findings: Is a 66-year-old female presents with nonspecific symptoms chiefly which is increased somnolence over the past 24 hours. Patient on my exam is neurologically intact, she denies any focalized weakness drop out of visual chavez syncope chest pain or shortness of breath. Patient's initial workup is negative. At this time I believe the patient is stable for outpatient workup. Discussed with her return to ED criteria. Luis Reinoso MD Apr 13, 2017 15:23
[2017-04-13 16:29] VITALS: BP 149/85
--- NOTE | 2017-04-14 22:51 | EKG ---
Date Performed: 04/13/2017 Time Performed: 13:35:33 PTAGE: 66 years EKG: SINUS BRADYCARDIA BORDERLINE ECG PREVIOUS TRACING : 02/07/2017 15.11 DOCTOR: Carey Martin Interpretating Date/Time 04/14/2017 22:49:06
== END 2017-04-13 16:46 | disposition home or self-care (01) ==
LOC: NEPC 13:21
DX: R40.0 Somnolence (principal); I10 Essential (primary) hypertension; E78.00 Pure hypercholesterolemia, unspecified; E78.5 Hyperlipidemia, unspecified; I25.10 Atherosclerotic heart disease of native coronary artery without angina pectoris; H53.8 Other visual disturbances; R00.1 Bradycardia, unspecified; Z95.5 Presence of coronary angioplasty implant and graft
CPT/HCPCS: 70450; 71010; 80053; 81001; 82140; 82550; 84443; 84484; 85025; 85610; 85730; 93005; 96360; 99285; J7030

== ENCOUNTER 2017-09-14 18:35 | Emergency (ER) | payer OTHER ==
[~2017-09-14] VITALS: Ht 157.5 cm; Wt 72.5 kg
[~2017-09-14 18:35] MED LIST changes: -ASPI81TA82 PO; -CITA20TA4 PO; -HYDR12.56 PO; +IBUP1TAB5 PO; -IBUP400T20 PO; -LOSA25TA31 PO; -METO25 PO; -NIFE20CA PO; +ORPH100T2 PO; -ORPH100T99 PO; -ZOCO40TA PO
[2017-09-14 18:42] VITALS: BP 146/78; PULSE 54; RESP 16; TEMP 98.2; O2SAT 98
[2017-09-14 19:53] VITALS: BP 147/76; PULSE 52; RESP 14; O2SAT 98
[2017-09-14] MEDS ORDERED: SODIUM CHLORID 0.9% 500 ML INJ 500 ML IV ONE (20:15)
--- NOTE | 2017-09-14 20:16 | PD ---
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 Patient denies chest pain at that time denies shortness of breath but reports people thought she looked pale and sweaty. Patient has a history of CAD with 2 stents placed in 2008. She denies diabetes she denies hypertension she has been obese and otherwise alert oriented 3.. At this time she has no symptoms in the ER duration of the symptoms lasted she said for about 30 minutes she would be nodding in and out. She did not take any medication to alleviate the symptoms. She did not see another doctor for this she denies any specific pains however she has neck pain in the ER that is reproducible by palpating her trapezius muscles that insert on the occiput of her right scalp skull. PFSH Past Medical History Cardiac Catheterization: Yes (2008) Cardiovascular Problems: Yes High Cholesterol: Yes Diminished Hearing: No Hypertension: Yes Myocardial Infarction: Yes Tetanus Vaccination: < 5 Years Influenza Vaccination: Yes Menopausal: Yes : 2 Para: 1 : 1 Past Surgical History Appendectomy: Yes Section: Yes Coronary Stent: Yes (2008) Hysterectomy: Yes Social History Alcohol Use: No Tobacco Use: No Substance Use: No Allergies-Medications (Allergen,Severity, Reaction): Coded Allergies: morphine (Unverified Adverse Reaction, Severe, VOMITING, 09/14/17) Reported Meds & Prescriptions Reported Meds & Active Scripts Active Orphenadrine CR (Orphenadrine Citrate) 100 Mg Tab 100 Mg PO Q12HR Ibuprofen 400 Mg Tab 400 Mg PO Q6H PRN Review of Systems Except as stated in HPI: all other systems reviewed are Neg HENT: Positive: Neck Pain (she has stiffness and tenderness to the right trapezius occipital area muscles reproducible with my palpation) Physical Exam Narrative GENERAL: Alert oriented 3 nontoxic-appearing SKIN: Warm and dry. HEAD: Atraumatic. Normocephalic. EYES: Pupils equal and round. No scleral icterus. No injection or drainage. ENT: No nasal bleeding or discharge. Mucous membranes pink and moist. NECK: Trachea midline. No JVD. Producible pain point focal tenderness at the trapezius muscles as they insert towards the occiput CARDIOVASCULAR: Regular rate and rhythm. Patient is slightly bradycardia EKG is a rate of 52 sinus bradycardia RESPIRATORY: No accessory muscle use. Clear to auscultation. Breath sounds equal bilaterally. GASTROINTESTINAL: Abdomen soft, non-tender, nondistended. Hepatic and splenic margins not palpable. MUSCULOSKELETAL: Extremities without clubbing, cyanosis, or edema. No obvious deformities. Muscles of her trapezius muscles that go towards the scalene muscles are tender point palpation reproducible NEUROLOGICAL: Awake and alert. No obvious cranial nerve deficits. Motor grossly within normal limits. Five out of 5 muscle strength in the arms and legs. Normal speech. PSYCHIATRIC: Appropriate mood and affect; insight and judgment normal. Data Data Last Documented VS Vital Signs Date Time Temp Pulse Resp B/P (MAP) Pulse Ox O2 Delivery O2 Flow Rate FiO2 09/15/17 00:12 09/14/17 22:28 66 14 99 Room Air 09/14/17 18:42 98.2 Orders Orders Complete Blood Count With Diff (09/14/17 20:07) Comprehensive Metabolic Panel (09/14/17 20:07) Lipase (09/14/17 20:07) Urinalysis - C+S If Indicated (09/14/17 20:07) Magnesium (Mg) (09/14/17 20:07) Phosphorus (Po4) (09/14/17 20:07) Sodium Chlorid 0.9% 500 Ml Inj (Ns 500 M (09/14/17 20:15) Electrocardiogram (09/14/17 19:53) Ct Brain W/O Iv Contrast(Rout) (09/14/17 ) Cta Neck W Iv Contrast W 3d (09/14/17 ) Iohexol 350 Inj (Omnipaque 350 Inj) (09/14/17 22:32) Ketorolac Inj (Toradol Inj) (09/15/17 00:00) Labs Laboratory Tests Test 09/14/17 20:12 White Blood Count 8.8 TH/MM3 Red Blood Count 5.26 MIL/MM3 Hemoglobin 12.2 GM/DL Hematocrit 36.9 % Mean Corpuscular Volume 70.1 FL Mean Corpuscular Hemoglobin 23.2 PG Mean Corpuscular Hemoglobin Concent 33.1 % Red Cell Distribution Width 14.8 % Platelet Count 336 TH/MM3 Mean Platelet Volume 8.6 FL Neutrophils (%) (Auto) 51.4 % Lymphocytes (%) (Auto) 35.0 % Monocytes (%) (Auto) 9.6 % Eosinophils (%) (Auto) 2.7 % Basophils (%) (Auto) 1.3 % Neutrophils # (Auto) 4.5 TH/MM3 Lymphocytes # (Auto) 3.1 TH/MM3 Monocytes # (Auto) 0.8 TH/MM3 Eosinophils # (Auto) 0.2 TH/MM3 Basophils # (Auto) 0.1 TH/MM3 CBC Comment DIFF FINAL Differential Comment Urine Color LIGHT-YELLOW Urine Turbidity CLEAR Urine pH 7.0 Urine Specific [place] 1.005 Urine Protein NEG mg/dL Urine Glucose (UA) NEG mg/dL Urine Ketones NEG mg/dL Urine Occult Blood NEG Urine Nitrite NEG Urine Bilirubin NEG Urine Urobilinogen LESS THAN 2.0 MG/DL Urine Leukocyte Esterase NEG Urine RBC LESS THAN 1 /hpf Urine Squamous Epithelial Cells 2 /hpf Microscopic Urinalysis Comment CULT NOT INDICATED Blood Urea Nitrogen 17 MG/DL Creatinine 0.92 MG/DL Random Glucose 77 MG/DL Total Protein 8.6 GM/DL Albumin 3.9 GM/DL Calcium Level 9.0 MG/DL Phosphorus Level 3.1 MG/DL Magnesium Level 1.9 MG/DL Alkaline Phosphatase 65 U/L Aspartate Amino Transf (AST/SGOT) 17 U/L Alanine Aminotransferase (ALT/SGPT) 23 U/L Total Bilirubin 0.4 MG/DL Sodium Level 136 MEQ/L Potassium Level 3.1 MEQ/L Chloride Level 100 MEQ/L Carbon Dioxide Level 30.2 MEQ/L Anion Gap 6 MEQ/L Estimat Glomerular Filtration Rate 73 ML/MIN Lipase 191 U/L [facility] Medical Decision Making Medical Screen Exam Complete: Yes Emergency Medical Condition: Yes Interpretation(s) EKG SINUS BRADYCARDIA AT RATE OF 52 Differential Diagnosis Muscle spasms neck versus vertebral artery dissection versus contusion of the neck versus versus brachial plexus inflammation versus paresthesias versus anxiety Narrative Course CT of head is negative CTA of neck vessels is negative for any vertebral artery dissection or any dissection of the vessels the catechols the lack of blood flow to the brain during her episode today at work. She was given Toradol IV to help with the muscle spasms of the neck and discharged home to follow up as an outpatient Diagnosis Primary Impression: Syncope Qualified Codes: R55 - Syncope and collapse Additional Impression: Muscle spasm Patient Instructions: General Instructions, Muscle Spasm (ED) Disposition: 01 DISCHARGE HOME Condition: Good Ralf William MD Sep 14, 2017 20:16
[2017-09-14 21:23] LABS: AUTOMATED NEUTROPHIL # 4.5 TH/MM3 (1.8-7.7); BASOPHIL # 0.1 TH/MM3 (0-0.2); BASOPHIL % 1.3 % (0.0-2.0); EOSINOPHIL # 0.2 TH/MM3 (0-0.4); EOSINOPHIL % 2.7 % (0.0-4.0); HEMATOCRIT 36.9 % (35.0-46.0); HEMO FLAGS DIFF FINAL; LYMPHOCYTE # 3.1 TH/MM3 (1.0-4.8); MEAN CELL VOLUME 70.1 FL (80.0-100.0); MEAN CORPUSCULAR HEMOGLOBIN 23.2 PG (27.0-34.0); MEAN CORPUSCULAR HGB CONC 33.1 % (32.0-36.0); MONO % 9.6 % (0.0-8.0); NEUT % 51.4 % (16.0-70.0); PLATELET COUNT 336 TH/MM3 (150-450); RED BLOOD COUNT 5.26 MIL/MM3 (4.00-5.30); RED CELL DISTRIBUTION WIDTH 14.8 % (11.6-17.2); WHITE BLOOD COUNT 8.8 TH/MM3 (4.0-11.0)
[2017-09-14 21:27] LABS: BLOOD, URINE NEG (NEG); GLUCOSE,URINE NEG (NEG); KETONE, URINE NEG (NEG); NITRITE,URINE NEG (NEG); SQUAMOUS EPITHELIAL CELL URINE 2 /hpf (0-5); URINE COLOR LIGHT-YELLOW (YELLW/STRAW)
[2017-09-14 21:28] LABS: COMMENT (UR) CULT NOT INDICATED; CULTURE IF INDICATED CULT NOT INDICATED
[2017-09-14 21:39] LABS: ANION GAP 6 MEQ/L (5-15); AST (GOT) 17 U/L (15-37); BICARBONATE 30.2 MEQ/L (21.0-32.0); BLOOD UREA NITROGEN 17 MG/DL (7-18); CHLORIDE 100 MEQ/L (98-107); GLOMERULAR FILTRATION RATE 73 ML/MIN (>89); MAGNESIUM 1.9 MG/DL (1.5-2.5); POTASSIUM 3.1 MEQ/L (3.5-5.1); SODIUM (NA) 136 MEQ/L (136-145)
[2017-09-14 21:40] LABS: ALT (GPT) 23 U/L (10-53)
[2017-09-14 21:42] LABS: ALKALINE PHOSPHATASE 65 U/L (45-117); TOTAL BILIRUBIN ADULT 0.4 MG/DL (0.2-1.0)
[2017-09-14 22:28] VITALS: BP 138/74; PULSE 66; RESP 14; O2SAT 99
[2017-09-14] MEDS ORDERED: IOHEXOL 350 MG/ML 10 ML VIAL (for RAD DIAG) IVCONTRAST ONE (22:32)
--- NOTE | 2017-09-14 22:39 | RADRPT ---
EXAM DATE/TIME: 09/14/2017 22:29 [facility] COMPARISON: CT BRAIN W/O CONTRAST, April 13, 2017, 14:53. INDICATIONS : Altered mental status. RADIATION DOSE: 38.90 CTDIvol (mGy) MEDICAL HISTORY : Cardiovascular disease. SURGICAL HISTORY : None. ENCOUNTER: Initial ACUITY: 1 day PAIN SCALE: 0/10 LOCATION: cranial TECHNIQUE: Multiple contiguous axial images were obtained of the head. Using automated exposure control and adj ustment of the mA and/or kV according to patient size, radiation dose was kept as low as reasonably a chievable to obtain optimal diagnostic quality images. DICOM format image data is available electro nically for review and comparison. FINDINGS: CEREBRUM: The ventricles are normal for age. No evidence of midline shift, mass lesion, hemorrhage or acute in farction. There is decreased density in the posterior cerebral white matter. This is unchanged. No e xtra-axial fluid collections are seen. POSTERIOR FOSSA: The cerebellum and brainstem are intact. The 4th ventricle is midline. The cerebellopontine angle i s unremarkable. EXTRACRANIAL: The visualized portion of the orbits is intact. SKULL: The calvaria is intact. No evidence of skull fracture. CONCLUSION: No acute abnormality is seen. There is stable low density in the posterior cerebral white matter like ly from small vessel ischemic change. Black Keenan MD on September 14, 2017 at 22:36 Board Certified Radiologist. This report was verified electronically.
--- NOTE | 2017-09-14 23:20 | RADRPT ---
EXAM DATE/TIME: 09/14/2017 22:29 [facility] COMPARISON: CTA CAROTID ARTERIES W 3D RECON, February 07, 2017, 16:47. INDICATIONS : Neck pain. Evaluate for vertebral dissection. IV CONTRAST: 75 cc Omnipaque 350 (iohexol) IV RADIATION DOSE: 27.93 CTDIvol (mGy) MEDICAL HISTORY : Cardiovascular disease. SURGICAL HISTORY : None. ENCOUNTER: Initial ACUITY: 1 day PAIN SCALE: 8/10 LOCATION: neck Elevated flow velocities and ICA/CCA ratios have been found to correlate with increased degrees of vessel stenosis, calculated as percentage of diameter relative to a normal segment of distal ICA/CCA. TECHNIQUE: Volumetric scanning was performed using a multirow detector CT scanner. The data was post processed with a variety of visualization algorithms including full-volume maximum intensity projection, multip lanar sliding thin-slab reformation, curved-planar reformation, and surface-rendering techniques. Us ing automated exposure control and adjustment of the mA and/or kV according to patient size, radiatio n dose was kept as low as reasonably achievable to obtain optimal diagnostic quality images. DICOM f ormat image data is available electronically for review and comparison. FINDINGS: AORTIC ARCH: There is a two-vessel origin of the great vessels from the aorta. No evidence of ostial narrowing. RIGHT CAROTID: The common carotid artery is intact. Eccentric calcification causes mild luminal narrowing; the appe arance is similar to prior CTA in. January 2017.. The internal carotid artery is tortuous.. The natural resource economist al carotid artery is intact. LEFT CAROTID: The common carotid artery is intact. Eccentric calcification in the carotid bulb causes mild narrowi ng, similar to prior CTA in January 2017. The internal carotid artery is tortuous. The external carot id artery is intact. VERTEBRALS: The vertebral arteries are symmetric and small in diameter. No stenotic lesions are seen. CONCLUSION: The overall appearance of the carotids and vertebrals is similar to prior CTA in January 2017 with bila teral calcified plaque in the carotid bulbs without significant stenosis, tortuous internal carotid a rteries, and patent but diminutive bilateral vertebral arteries. The Pepito Ochoa MD on September 14, 2017 at 23:12 Board Certified Radiologist. This report was verified electronically.
[2017-09-15] MEDS ORDERED: KETOROLAC TROMETHAMINE 30 MG/ML (IVP) VIAL IV PUSH ONE
--- NOTE | 2017-09-15 17:35 | EKG ---
Date Performed: 09/14/2017 Time Performed: 19:53:02 PTAGE: 66 years EKG: SMALL INFERIOR Q-WAVES OF UNDETERMINED SIGNIFICANCE SINUS BRADYCARDIA Since previous tracin g, no significant change noted BORDERLINE ECG PREVIOUS TRACING : 04/13/2017 13.35 DOCTOR: Theo Masters Interpretating Date/Time 09/15/2017 17:33:45
== END 2017-09-15 00:22 | disposition home or self-care (01) ==
LOC: NEPC 18:35
DX: R55 Syncope and collapse (principal); M62.838 Other muscle spasm; R00.1 Bradycardia, unspecified; E78.00 Pure hypercholesterolemia, unspecified; I10 Essential (primary) hypertension; I25.2 Old myocardial infarction; Z88.5 Allergy status to narcotic agent
CPT/HCPCS: 70450; 70498; 80053; 81001; 83690; 83735; 84100; 85025; 93005; 96361; 96374; 99285; J1885; J7040; Q9967

== ENCOUNTER 2017-11-11 22:17 | Emergency (ER) | payer OTHER ==
[~2017-11-11] VITALS: Ht 154.9 cm; Wt 75.0 kg
[2017-11-11 22:18] VITALS: BP 174/80; PULSE 64; RESP 22; TEMP 98.9; O2SAT 96
--- NOTE | 2017-11-11 22:59 | PD ---
HPI Chief Complaint: Back/ Neck Pain or Injury Time Seen by Provider: 22:53 Travel History International Travel<30 days: No Contact w/Intl Traveler<30days: No Traveled to known affect area: No History of Present Illness HPI 66-year-old female presents to the emergency department for complaint of right- sided neck pain that worsens with range of motion since yesterday. Patient states symptoms worsened today after awakening from a nap. Patient is taking acetaminophen without relief. Patient states she can't take Advil because it makes her vomit although she was prescribed ibuprofen and Norflex for same pain approximately 8 months ago when she had an episode. Patient states medications that time resolved her symptoms. Patient does not report any upper extremity or lower extremity numbness tingling or weakness bladder or bowel dysfunction satellite anesthesia chest pain shortness of breath sweats mid scapular pain abdominal pain nausea or vomiting. Patient does have extensive past history consistent with management of hypertension and CAD with previous stent placement in 2008. Patient states that her pain is specifically worsened by palpation and any type of lateral rotation or flexion or extension of the neck. Patient's had no febrile illness denies any recent respiratory illness. Patient denies any known trauma injury. The patient rates her pain 10 over 10 in intensity which worsens with range of motion. Pain does radiate to the right shoulder and to the right postauricular area with range of motion otherwise stays localized to the right lateral neck. PFSH Past Medical History Narrative Medical CAD cardiac catheterization with stent placement hypertension dyslipidemia cervical strain Cardiac Catheterization: Yes (2008) Cardiovascular Problems: Yes High Cholesterol: Yes Diminished Hearing: No Hypertension: Yes Myocardial Infarction: Yes Menopausal: Yes : 2 Para: 1 : 1 Past Surgical History Appendectomy: Yes Section: Yes Coronary Stent: Yes (2008) Hysterectomy: Yes Social History Alcohol Use: No Tobacco Use: No Substance Use: No Allergies-Medications (Allergen,Severity, Reaction): Coded Allergies: morphine (Unverified Adverse Reaction, Severe, VOMITING, 11/11/17) Reported Meds & Prescriptions Reported Meds & Active Scripts Active Orphenadrine CR (Orphenadrine Citrate) 100 Mg Tab 100 Mg PO Q12HR Ibuprofen 400 Mg Tab 400 Mg PO Q6H PRN Review of Systems Except as stated in HPI: all other systems reviewed are Neg General / Constitutional: No: Fever, Chills HENT: Positive: Neck Pain (right posterior), No: Congestion, Neck Stiffness Cardiovascular: No: Chest Pain or Discomfort, Diaphoresis Respiratory: No: Shortness of Breath, Pleuritic Pain Gastrointestinal: No: Nausea, Vomiting Genitourinary: No: Flank Pain Musculoskeletal: Positive: Pain (right posterior neck and posterior shoulder) Skin: No Rash Neurologic: No: Weakness Psychiatric: No: Anxiety Hematologic/Lymphatic: No: Lymph Node Enlargement Physical Exam Narrative GENERAL: Well-developed well-nourished female in obvious discomfort standing at the bedside and rotating her body in order to prevent rotation of neck and head as this precipitates right sided and right posterior neck pain SKIN: Warm and dry. HEAD: Normocephalic. EYES: No scleral icterus. No injection or drainage. NECK: Supple, trachea midline. No JVD or lymphadenopathy. No midline tenderness to direct palpation along the cervical spine no bony step-off right paracervical muscle spasm and trigger point to direct palpation along the right inferior border of the neck that exacerbates and reproduces pain of presentation. CARDIOVASCULAR: Regular rate and rhythm without murmurs, gallops, or rubs. RESPIRATORY: Breath sounds equal bilaterally. No accessory muscle use. GASTROINTESTINAL: Abdomen soft, non-tender, nondistended. MUSCULOSKELETAL: No cyanosis, or edema. Motor strength 5 over 5 bilateral upper extremities and lower extremities; sensory exam intact; DTRs 2+ and equal bilaterally no clonus. BACK: Nontender without obvious deformity. Negative straight-leg raising. No CVA tenderness. Data Data Last Documented VS Vital Signs Date Time Temp Pulse Resp B/P (MAP) Pulse Ox O2 Delivery O2 Flow Rate FiO2 11/11/17 22:18 98.9 64 22 174/80 (111) 96 Room Air Orders Orders Ketorolac Inj (Toradol Inj) (11/11/17 23:00) Orphenadrine Inj (Norflex Inj) (11/11/17 23:00) Spine, Cervical - Ltd (Ap&Lat) (11/11/17 ) [facility] Medical Decision Making Medical Screen Exam Complete: Yes Emergency Medical Condition: Yes Medical Record Reviewed: Yes Interpretation(s) c spine xr: CONCLUSION: 1. Diffuse primary bony degenerative changes, disc degeneration and disc space narrowing involving the mid to lower cervical spine. Ray Alexis MD on November 11, 2017 at 23:27 Board Certified Radiologist. This report was verified electronically. Differential Diagnosis Myofascial strain, trigger point spasm, cervical radiculopathy Narrative Course Imaging studies ordered; patient administered Norflex 60 mg IM and Toradol 60 mg IM At 11:35 PM --- patient notes improvement of symptoms and is stable for outpatient management is aware of imaging results and need for follow-up with primary care provider Diagnosis Primary Impression: Neck pain on right side Referrals: Primary Care Physician 2 days Patient Instructions: General Instructions Med/Other Pt SpecificInfo: Prescription(s) given Scripts Orphenadrine ER 12 HR (Orphenadrine ER 12 HR) 100 Mg Tab 100 MG PO Q12HR for Muscle Spasm, #14 TAB 0 Refills Prov: Krystal Woodard MD 11/11/17 Methylprednisolone Dosepak (Medrol Dosepak) 4 Mg Dspk 4 MG PO DIRECTED, #1 DSPK 0 Refills Per Pharmacist direction Prov: Krystal Woodard MD 11/11/17 Disposition: 01 DISCHARGE HOME Condition: Stable Krystal Woodard MD Nov 11, 2017 22:59
[2017-11-11] MEDS ORDERED: KETOROLAC TROMETHAMINE 60 MG/2 ML (IM) VIAL IM ONE (23:00)
[2017-11-11] MEDS ORDERED: ORPHENADRINE INJ 60 MG/2 ML AMP IM ONE (23:00)
--- NOTE | 2017-11-11 23:30 | RADRPT ---
EXAM DATE/TIME: 11/11/2017 23:09 [facility] COMPARISON: No previous studies available for comparison. INDICATIONS : Nontraumatic neck pain since January of 2017. Treated with medication but extreme pain still. MEDICAL HISTORY : Myocardial infarction. Hypertension SURGICAL HISTORY : Coronary artery stent. ENCOUNTER: Subsequent ACUITY: 7 - 11 months PAIN SCORE: 10/10 LOCATION: Bilateral neck FINDINGS: Two projection examination was performed. There is normal alignment and curvature of the vertebral b odies down to the level of C7. No evidence of fracture or subluxation. There is diffuse moderate pr imary bony degenerative changes, disc degeneration and disc space narrowing especially at C4-5, C5-6 and C6-7. The prevertebral soft tissues are of normal thickness. The atlanto-axial articulation is i ntact. CONCLUSION: 1. Diffuse primary bony degenerative changes, disc degeneration and disc space narrowing involving th e mid to lower cervical spine. Ray Alexis MD on November 11, 2017 at 23:27 Board Certified Radiologist. This report was verified electronically.
[2017-11-11] MEDS ORDERED: ORPH100T PO (23:36)
[2017-11-11] MEDS ORDERED: MEDR4PAK PO (23:36)
== END 2017-11-12 00:40 | disposition home or self-care (01) ==
LOC: NEPC 22:17
DX: M54.2 Cervicalgia (principal); M50.30 Other cervical disc degeneration, unspecified cervical region; I10 Essential (primary) hypertension; I25.10 Atherosclerotic heart disease of native coronary artery without angina pectoris; E78.00 Pure hypercholesterolemia, unspecified; I25.2 Old myocardial infarction
CPT/HCPCS: 72040; 96372; 99284; J1885; J2360